=== PATIENT | female | born 1965 | race African-American/Black ===

== ENCOUNTER 2022-04-29 15:48 | Inpatient (IN) | payer OTHER ==
[~2022-04-29] VITALS: Ht 152.4 cm; Wt 46.3 kg
[2022-04-29 19:51] LABS: BASOPHILS % 0.6 % (0.0-2.0); HEMATOCRIT. 36.9 % (36.0-48.0); HEMOGLOBIN. 12.7 g/dL (12.0-16.0); LYMPHOCYTES % 42.2 % (20.0-50.0); MEAN CORPUSCULAR HEMOGLOBIN 31.8 pg (28.0-32.0); MEAN CORPUSCULAR VOLUME 92.7 fL (81.0-99.0); MEAN PLATELET VOLUME 7.3 fl (7.4-10.4); MONOCYTES % 7.1 % (2.0-8.0); NEUTROPHILS % 47.1 % (40.0-76.0); PLATELET 311 x1000/uL (130-400); RED BLOOD CELL COUNT 3.99 mill/uL (4.2-5.4); RED CELL DISTRIBUTION WIDTH 15.1 % (11.6-14.6)
[2022-04-29 20:08] LABS: CHLORIDE 102 mEq/L (98-107)
[2022-04-29] MEDS ORDERED: ENOXAPARIN 60MG/0.6ML SYR SUBCUT ONE (22:45)
[2022-04-30] VITALS (7 sets, daily range): BP systolic 135–171; BP diastolic 85–113
[2022-04-30] MEDS ORDERED: AMLO10TA80 MT (05:36)
[2022-04-30] MEDS ORDERED: POTASSIUM CHLORIDE 20MEQ TABLET SR PO NR (08:00)
[2022-04-30] MEDS: AMLODIPINE 10MG TABLET PO SCH (08:14)
[2022-04-30] MEDS: ENOXAPARIN 40MG/0.4ML SYR SUBCUT SCH (08:14)
[2022-04-30] MEDS: ASPIRIN 325MG EC TABLET PO SCH (08:14)
[2022-04-30] MEDS ORDERED: HYDRALAZINE HCL 25MG TABLET PO PRN (12:15)
[2022-04-30 12:24] LABS: BASOPHILS % 0.9 % (0.0-2.0); EOSINOPHILS % 4.5 % (0.0-5.0); HEMATOCRIT. 38.8 % (36.0-48.0); LYMPHOCYTES % 49.4 % (20.0-50.0); MEAN CORPUSCULAR HEMOGLOBIN 30.9 pg (28.0-32.0); MEAN CORPUSCULAR VOLUME 92.5 fL (81.0-99.0); MEAN PLATELET VOLUME 8.2 fl (7.4-10.4); MONOCYTES % 7.6 % (2.0-8.0); NEUTROPHILS % 37.6 % (40.0-76.0); PLATELET 319 x1000/uL (130-400); RED BLOOD CELL COUNT 4.19 mill/uL (4.2-5.4); RED CELL DISTRIBUTION WIDTH 15.3 % (11.6-14.6)
[2022-04-30 12:31] LABS: CHLORIDE 105 mEq/L (98-107)
[2022-04-30 16:04] LABS: CREATINE KINASE MB FRACTION 1.7 ng/mL (0.5-3.6)
[2022-05-01 00:14] LABS: CREATINE KINASE MB FRACTION 1.6 ng/mL (0.5-3.6)
[2022-05-01 04:00] VITALS: BP 128/88
[2022-05-01 06:12] LABS: CHLORIDE 104 mEq/L (98-107)
[2022-05-01 06:21] LABS: BASOPHILS % 0.8 % (0.0-2.0); EOSINOPHILS % 4.5 % (0.0-5.0); HEMATOCRIT. 37.9 % (36.0-48.0); HEMOGLOBIN. 12.7 g/dL (12.0-16.0); MEAN CORPUSCULAR HEMOGLOBIN 30.9 pg (28.0-32.0); MEAN CORPUSCULAR VOLUME 92.3 fL (81.0-99.0); MEAN PLATELET VOLUME 7.6 fl (7.4-10.4); MONOCYTES % 8.5 % (2.0-8.0); NEUTROPHILS % 37.2 % (40.0-76.0); PLATELET 303 x1000/uL (130-400); RED BLOOD CELL COUNT 4.11 mill/uL (4.2-5.4); RED CELL DISTRIBUTION WIDTH 15.3 % (11.6-14.6)
[2022-05-01 06:25] LABS: CREATINE KINASE 120 IU/L (26-192); CREATINE KINASE MB FRACTION 1.1 ng/mL (0.5-3.6)
[2022-05-01 08:10] VITALS: BP 149/85
[2022-05-01] MEDS: AMLODIPINE 10MG TABLET PO SCH (08:23)
[2022-05-01] MEDS: ASPIRIN 325MG EC TABLET PO SCH (08:23)
[2022-05-01] MEDS: ENOXAPARIN 40MG/0.4ML SYR SUBCUT SCH (08:23)
[2022-05-01] MEDS ORDERED: AMLO10TA80 MT (09:04)
[2022-05-01] MEDS ORDERED: ASPI-1497 MT (09:05)
[2022-05-01 09:35] VITALS: BP 142/82
== END 2022-05-01 10:33 | disposition home or self-care (01) | DRG 74 ==
LOC: ER 15:48 → MICUSO 22:45 → 8WST 04-30 03:19
PROVIDERS: ADMIT Internal Medicine; ATTEND Internal Medicine
DX: G90.8 Other disorders of autonomic nervous system (principal); I10 Essential (primary) hypertension; E87.6 Hypokalemia; G40.909 Epilepsy, unspecified, not intractable, without status epilepticus; M19.90 Unspecified osteoarthritis, unspecified site; I08.2 Rheumatic disorders of both aortic and tricuspid valves; Z20.822 Contact with and (suspected) exposure to COVID-19; I16.0 Hypertensive urgency; Z59.00 Homelessness unspecified; Z82.3 Family history of stroke; Z82.49 Family history of ischemic heart disease and other diseases of the circulatory system; Z83.3 Family history of diabetes mellitus; Z87.891 Personal history of nicotine dependence; Z91.14 Patient's other noncompliance with medication regimen; Z91.041 Radiographic dye allergy status; Z79.82 Long term (current) use of aspirin; Z79.899 Other long term (current) drug therapy
CPT/HCPCS: 36415; 71045; 80048; 80053; 82550; 82553; 83735; 83880; 84484; 85025; 87426; 93005; 93306; 93880; 99285; J1650

== ENCOUNTER 2023-08-15 23:07 | Emergency (ER) | payer MEDICAID, OTHER ==
[~2023-08-15] VITALS: Ht 144.8 cm; Wt 49.8 kg
[~2023-08-15 23:07] MED LIST: AMLO10TA80 MT; ASPI-1497 MT
[2023-08-15 23:28] VITALS: O2SAT 99
[2023-08-16 01:53] LABS: CLARITY URINE CLOUDY (CLEAR); COLOR URINE YELLOW (YELLOW); GLUCOSE URINE NEGATIVE (NEGATIVE); KETONES URINE NEGATIVE (NEGATIVE); LEUKOCYTE ESTERASE URINE 1+ (NEGATIVE); NITRITE URINE NEGATIVE (NEGATIVE); OCCULT BLOOD URINE TRACE (NEGATIVE); PROTEIN URINE 1+ (NEGATIVE); UROBILINOGEN URINE 0.2 E.U./dL (0.2-1.0)
[2023-08-16 02:14] LABS: BASOPHILS % 1.1 % (0.0-2.0); EOSINOPHILS % 2.7 % (0.0-5.0); HEMATOCRIT. 40.6 % (36.0-48.0); HEMOGLOBIN. 13.6 g/dL (12.0-16.0); LYMPHOCYTES % 42.2 % (20.0-50.0); MEAN CORPUSCULAR HEMOGLOBIN 31.4 pg (28.0-32.0); MEAN CORPUSCULAR HGB CONC 33.5 g/dL (31.0-37.0); MEAN CORPUSCULAR VOLUME 93.5 fL (81.0-99.0); MEAN PLATELET VOLUME 7.2 fl (7.4-10.4); MONOCYTES % 7.9 % (2.0-8.0); NEUTROPHILS % 46.1 % (40.0-76.0); PLATELET 349 x1000/uL (130-400); RED BLOOD CELL COUNT 4.34 mill/uL (4.2-5.4); RED CELL DISTRIBUTION WIDTH 15.4 % (11.6-14.6); WHITE BLOOD COUNT 5.9 x1000/uL (4.5-11.0)
[2023-08-16 02:35] LABS: BACTERIA URINE TRACE; RBC URINE 0-2 /hpf (0-2); SQUAMOUS EPITHELIAL CELL URINE 1+ /lpf (RARE/1+)
[2023-08-16 06:43] LABS: *AMPHETAMINES SCREEN URINE NEGATIVE (NEGATIVE); *BARBITURATES SCREEN URINE NEGATIVE (NEGATIVE); *BENZODIAZEPINES SCREEN URINE NEGATIVE (NEGATIVE); *COCAINE SCREEN URINE NEGATIVE (NEGATIVE); ECSTASY MDMA SCREEN URINE NEGATIVE (NEGATIVE); METHADONE URINE SCREEN NEGATIVE (NEGATIVE); OPIATES URINE SCREEN NEGATIVE (NEGATIVE); PHENCYCLIDINE URINE SCREEN NEGATIVE (NEGATIVE)
[2023-08-16 06:44] LABS: CANNABINOID URINE SCREEN NEGATIVE (NEGATIVE)
[2023-08-16] MEDS ORDERED: NITROFURANTOIN 100MG M/M CAPSULE PO ONE (06:45)
[2023-08-16] MEDS ORDERED: HYDRALAZINE 20MG/ML VIAL IV ONE (08:45)
[2023-08-16 09:02] VITALS: BP 190/104; PULSE 88; RESP 16; TEMP 98.6
[2023-08-16 09:37] LABS: POTASSIUM 3.5 mEq/L (3.5-5.1); SODIUM 141 mEq/L (136-145)
[2023-08-16 09:38] LABS: ALBUMIN 4.5 g/dL (3.2-4.8); CARBON DIOXIDE 24 mEq/L (21-32); CHLORIDE 105 mEq/L (98-107); CREATININE 1.3 mg/dL (0.6-1.0); GLUCOSE 117 mg/dL (70-105)
[2023-08-16 09:39] LABS: ALANINE AMINOTRANSFERASE 8 IU/L (10-49); ASPARTATE AMINOTRANSFERASE 20 IU/L (<34)
[2023-08-16 09:43] LABS: TROPONIN I HIGH SENSITIVITY 192 ng/L (3.0-34)
[2023-08-16 11:39] LABS: UREA NITROGEN BLOOD QNS mg/dL (9-23)
== END 2023-08-16 08:15 | disposition short-term general hospital (02) ==
LOC: ER 23:07
DX: G40.909 Epilepsy, unspecified, not intractable, without status epilepticus (principal); I10 Essential (primary) hypertension; Z91.041 Radiographic dye allergy status; Z86.59 Personal history of other mental and behavioral disorders
CPT/HCPCS: 99285; 80053; 80305; 81003; 83880; 85025; 87086; 84484; 36415; 71045; 70450; 93005; 96374; J0360; Z7610 ×2